=== PATIENT | male | born 1985 | race Caucasian/White ===

== ENCOUNTER → 2018-04-20 10:44 | Outpatient (CLI) | payer OTHER, SELFPAY ==
--- NOTE | 2018-04-20 10:55 | XR_ITS ---
XR chest 2V HISTORY: ITS.REASON: LT CHEST PAIN ORDERING PHYSICIAN: Joe Ayers PATIENT AGE: 32 years COMPARISON: None available FINDINGS: The cardiomediastinal silhouette and pulmonary vascularity are within normal limits. The lungs are clear without infiltrates, suspicious nodules, or pleural effusions. No acute bony abnormalities. IMPRESSION: Negative chest, no acute finding
== END ==
PROVIDERS: PCP Internal Medicine; Visit Provider Internal Medicine
DX: R09.89 Other specified symptoms and signs involving the circulatory and respiratory systems (principal)
CPT/HCPCS: 71046; 93005